=== PATIENT | female | born 1940 | race Caucasian/White ===

== ENCOUNTER 2024-08-29 17:03 | Emergency (ER) | payer MEDICARE, BC, SELFPAY ==
[2024-08-29 17:21] VITALS: BP 151/76; PULSE 76; RESP 18; TEMP 37.3; O2SAT 96; BMI 28.7
[2024-08-29 18:21] LABS: PCR FLU A Negative PCR FLU A (Negative); PCR FLU B Negative PCR FLU B (Negative); PCR RSV Negative PCR RSV (Negative); SARS PCR* POSITIVE SARS-CoV-2 (Negative)
--- NOTE | 2024-08-29 19:49 | ED_ITS ---
HPI - General Adult General Chief complaint: Fever Stated complaint: Fever, congestion Time Seen by Provider: 08/29/24 17:54 Source: patient Mode of arrival: ambulatory Limitations: no limitations History of Present Illness HPI narrative: Patient is a sharonda 84-year-old female coming in today complaining of body aches and fever last night. Slight fever today, but generally feels better. Her has similar symptoms. She denies nausea or vomiting. She has a good appetite. She denies chest pain or shortness of breath. She has not been coughing. She denies abdominal discomfort. She denies diarrhea or constipation. She denies any urinary symptoms. Denies skin rash. Past medical history significant for hypertension, hyperlipidemia, GERD. Related Data Home Medications ?Medication ?Instructions ?Recorded ?Confirmed amlodipine 5 mg tablet 5 mg PO DAILY 08/29/24 08/29/24 bisoprolol fumarate 10 mg tablet 20 mg PO DAILY 08/29/24 08/29/24 citalopram 20 mg tablet 20 mg PO DAILY 08/29/24 08/29/24 omeprazole 20 mg capsule,delayed 20 mg PO DAILY 08/29/24 08/29/24 release pravastatin 20 mg tablet 20 mg PO QPM 08/29/24 08/29/24 Previous Rx's ?Medication ?Instructions ?Recorded nirmatrelvir 300 mg (150 mg See Rx Instructions PO .COMPLEX 08/29/24 x2)-ritonavir 100 mg tablet,dose #30 ea pack (Paxlovid) Allergies Allergy/AdvReac Type Severity Reaction Status Date / Time Sulfa (Sulfonamide Allergy Intermediate Verified 08/29/24 17:24 Antibiotics) Review of Systems Status of ROS: Reports: 10 or more systems reviewed and unremarkable except as noted in History and below [facility] Social History Smoking Status: Never smoker Do you use any of these nicotine containing products: None Second hand tobacco smoke exposure: No How often do you have a drink containing alcohol: never AUDIT-C Alcohol total score: 0 Non-prescribed substance use: denies use service: No Exam Narrative: Exam Narrative: Well-nourished well-developed patient in no acute distress. Alert and oriented. Answers questions appropriately. Mood and affect are appropriate. Thoughts are goal oriented and rational. No tangential or magical thinking noted. Patient speaks in full sentences without needing to catch her breath. Blood pressure slightly elevated, otherwise, vital signs are normal. HEENT: Normocephalic atraumatic. Pupils are equally round reactive to light. Extraocular muscles are intact. Conjunctivae are moist without any icterus noted. Moist mucous membranes. Neck is soft. Cardiovascular: Heart is regular rate and rhythm. Lungs: Clear to auscultation bilaterally no wheezes rhonchi or rales are appreciated. Patient takes deep breaths without any discomfort. Abdomen: Soft and nontender nondistended with normal bowel sounds. Extremities: Bilateral lower extremities are without edema. Skin: Well perfused without any obvious rashes. Const: Vital Signs, click to edit/add: Vital Signs - 24 hr 08/29/24 17:21 Temperature 99.2 F Pulse Rate [Pulse Oximeter] 76 Respiratory Rate 18 Blood Pressure [Ri ght Upper Arm] 151/76 H Pulse Oximetry 96 Oxygen Delivery Me thod Room Air Course Course ED Course: Triple swab is positive for COVID-19. Vital Signs Vital signs: Initial Vital Signs Temperature 99.2 F 08/29/24 17:21 Temperature Source Temporal Artery Scan 08/29/24 17:21 Pulse Rate 76 08/29/24 17:21 Respiratory Rate 18 08/29/24 17:21 Blood Pressure 151/76 H 08/29/24 17:21 Blood Pressure Mean 101 08/29/24 17:21 Blood Pressure Position Sitting 08/29/24 17:21 Pulse Oximetry 96 08/29/24 17:21 Oxygen Delivery Method Room Air 08/29/24 17:21 Vital Signs Temperature 99.2 F 08/29/24 17:21 Pulse Rate 76 08/29/24 17:21 Respiratory Rate 18 08/29/24 17:21 Blood Pressure 151/76 H 08/29/24 17:21 Pulse Oximetry 96 08/29/24 17:21 Oxygen Delivery Method Room Air 08/29/24 17:21 Temperature 99.2 F 08/29/24 17:21 Pulse Rate 76 08/29/24 17:21 Respiratory Rate 18 08/29/24 17:21 Blood Pressure 151/76 H 08/29/24 17:21 Pulse Oximetry 96 08/29/24 17:21 Oxygen Delivery Method Room Air 08/29/24 17:21 Medical Decision Making MDM Narrative Medical decision making narrative: 84-year-old female with COVID-19. We discussed treatment with Paxlovid which I do recommend for this patient. Patient has not been vaccinated this year. We discussed potential side effects and reasons to stop. I did input all of her medications in the liver pool COVID-19 ichart to look for any interactions and those were discussed with the patient. Did check a point of care creatinine to make sure patient has normal renal fu nction. Lab Data Lab results reviewed: Yes I reviewed the patient's lab results Labs: Lab Results 08/29/24 08/29/24 Range/Units 17:27 19:26 SARS-CoV-2 (PCR) POSITIVE SARS-CoV-2 A (Negative) Influenza Type A (PCR) Negative PCR FLU A (Negative) Influenza Type B (PCR) Negative PCR FLU B (Negative) RSV (PCR) Negative PCR RSV (Negative) POC Creatinine 0.9 (0.6-1.3) mg/dl Discharge Plan Discharge Clinical Impression: COVID-19 Patient Disposition: Home, Self-Care Condition: Stable Additional Instructions: You have been prescribed Paxlovid, which is the medication used to treat COVID- 19. If you start taking this medication, I would check your blood pressure daily. If your blood pressure drops below 120/80, I would hold your amlodipine until 3 days after you finish the Paxlovid. Wear a mask if you go out in public. Okay to use Tylenol as needed/as directed for fevers and body aches. Make sure you are eating nutritious meals and staying well hydrated. You can stop treatment early if you develop diarrhea, difficulty swallowing, changes in her appetite or taste causing your food to not taste good. Prescriptions: New Paxlovid 300 mg (150 mg x 2)-100 mg tablets,dose pack See Rx Instructions .ROUTE .COMPLEX Qty: 30 0RF Rx Instructions: take TWO 150 mg tablets of nirmatrelvir with ONE 100 mg tablet of ritonavir twice daily for 5 days No Action amlodipine 5 mg tablet 5 mg PO DAILY bisoprolol fumarate 10 mg tablet 20 mg PO DAILY citalopram 20 mg tablet 20 mg PO DAILY omeprazole 20 mg capsule,delayed release(DR/EC) 20 mg PO DAILY pravastatin 20 mg tablet 20 mg PO QPM Follow Up/Referrals: Mia Iglesias MD [Primary Care Provider] - Stand Alone Forms: [facility] Info Instructions
[2024-08-29 19:51] LABS: Creatinine, Point-of-Care* 0.9 mg/dl (0.6-1.3)
== END 2024-08-29 20:07 | disposition home or self-care (01) ==
PROVIDERS: Emergency Provider Family Medicine; PCP Family Medicine
DX: U07.1 COVID-19 (principal)
CPT/HCPCS: 82565; 87631; 99283; 99284